=== PATIENT | female | born 1940 | race Caucasian/White ===

== ENCOUNTER 2016-04-18 18:39 | Inpatient (IN) | payer MEDICARE ==
[~2016-04-18] VITALS: Ht 162.6 cm; Wt 72.9 kg
[2016-04-18 18:51] VITALS: BP 157/51; PULSE 85; RESP 16; O2SAT 96
--- NOTE | 2016-04-18 19:07 | ED.REPORT ---
HPI-Chest Pain 40 and Over Date of Service Apr 18, 2016 ED Provider: Tanner Moulton DO Pt is a 75 y.o. female with a hx of DM who presents to the ED from her PCP after an abnormal EKG and complaining of palpitations. Pt states that she was at Dr. Clay's office for a follow-up about her DM, she mentioned during the visit that she had been experiencing palpitations. An EKG was ordered and pt appeared to be in A-fib, she has no prior hx, pt was instructed to follow-up in the ED. She reports associated fatigue onset 3 weeks ago. She denies fever, nausea, vomiting, diarrhea, and cough. She reports taking ASA daily. Nursing Notes Stated Complaint: ABNORMAL EKG Chief Complaint: Dysrhythmia/Cardiac Nursing Notes Reviewed: Yes Allergies: Coded Allergies: TAPE (Verified Allergy, Severe, blisters, 04/18/16) morphine (Verified Adverse Reaction, Severe, Nausea,Vomiting, 04/18/16) General Time Seen by MD: 19:07 Chief Complaint Other (Palpitations) Hx Obtained From: Patient Arrived By: Walk-in Sudden in Onset?: Yes Onset Occurred: Just prior to arrival Severity: Current: No pain currently Recent Healthcare: Recent doctor visit Past Medical History Past Medical History Reports: Diabetes mellitus Past Surgical History None reported Social History Other Social History: Good social support Ambulatory Status Independent Review of Systems Constitutional: Reports: Fatigue, Denies: Fever Respiratory: Denies: Non-productive cough Cardiovascular: Reports: Palpitations GI: Denies: Diarrhea, Nausea, Vomiting Complete sys rev & neg: except as marked. Physical Exam Initial Vital Signs Vital Signs (First) Date Time Temp Pulse Resp B/P Pulse Ox O2 Delivery O2 Flow Rate FiO2 04/18/16 18:51 36.6 85 16 157/51 96 Room Air Initial VS: Reviewed Head / Eyes: Atraumatic, Normocephalic Extremities: Vascular intact, Neuro intact Skin: Warm, Dry, No cyanosis Neurologic: Alert, Oriented, Nonfocal Psychiatric: Mood/affect normal, Behavior normal, Normal thought content General/Constitutional: Awake, Alert, No acute distress, Well appearing, Well developed, Well hydrated, Well nourished, Not toxic appearing Respiratory / Chest: Atraumatic, Breath sounds NL, No respiratory distress Cardiovascular: Peripheral circulation NL Irregular pulse PAC's Abdomen: Atraumatic, No distention Interpretation & Diagnostics Lab Results Interpretation Result Diagram: 04/18/16192204/18/16 1923 Test 04/18/16 19:23 04/18/16 20:51 White Blood Count 16.3th/mm3 (3.8-10.1) Red Blood Count 4.32mil/mm3 (3.90-5.20) Hemoglobin 13.5g/dL (12.0-15.6) Hematocrit 40.1% (35.0-46.0) Mean Corpuscular Volume 92.8fL (81-100) Mean Corpuscular Hemoglobin 31.3pg (27.0-35.0) Mean Corpuscular Hemoglobin Concent 33.7% (32.0-37.0) Red Cell Distribution Width 13.1% (12.3-15.4) Platelet Count 384bil/L (150-400) Neutrophils (%) (Auto) 54.6% (40-74) Lymphocytes (%) (Auto) 32.8% (14-46) Monocytes (%) (Auto) 9.1% (4-12) Eosinophils (%) (Auto) 2.9% (0-5) Basophils (%) (Auto) 0.4% (0-3) Sodium Level 138mEq/L (134-144) Potassium Level 4.2mEq/L (3.5-5.2) Chloride Level 99mEq/L (97-108) Carbon Dioxide Level 24mmol/L (18-29) Blood Urea Nitrogen 10mg/dL (8-27) Creatinine 0.72mg/dL (0.57-1.00) Estimat Glomerular Filtration Rate 114mL/min (>59) Glucose Level 185mg/dL (60-99) Calcium Level 9.2mg/dL (8.5-10.1) Magnesium Level 2.0mg/dL (1.6-2.6) Total Bilirubin 0.3mg/dL (0.0-1.2) Aspartate Amino Transf (AST/SGOT) 18U/L (0-50) Alanine Aminotransferase (ALT/SGPT) 13U/L (0-32) Alkaline Phosphatase 68U/L (25-165) Troponin T < 0.010ug/L (0.0-0.011) Total Protein 7.0g/dL (6.4-8.4) Albumin 4.2g/dL (3.4-5.0) Thyroid Stimulating Hormone (TSH) 1.030uIU/mL (0.450-4.500) Hold Sexton Top Tube Received (Received) Urine Color Yellow (YELLOW) Urine Appearance Slightly cloudy Urine pH 6.5 (5.0-8.0) Urine Specific Decker 1.010 (1.003-1.035) Urine Protein Negativemg/dL (NEG,TRACE) Urine Glucose (UA) Negativemg/dL (NEGATIVE) Urine Ketones Negativemg/dL (NEGATIVE) Urine Occult Blood Small (NEGATIVE) Urine Nitrite Negative (NEGATIVE) Urine Bilirubin Negative (NEGATIVE) Urine Urobilinogen Normalmg/dL (NORMAL) Urine Leukocyte Esterase Small (NEGATIVE) Urine RBC 0-2/hpf (0-2) Urine WBC 11-50/hpf (0-5) Urine Epithelial Cells Moderate/hpf (NONE-MOD) Urine Crystals None seen (NONE SEEN) Urine Bacteria Many/hpf (NONE-FEW) Urine Hyaline Casts None/lpf (NONE) Urine Granular Casts None seen (NONE SEEN) Urine Waxy Casts None seen (NONE SEEN) Urine Red Blood Cell Casts None seen (NONE SEEN) Urine White Blood Cell Casts None seen (NONE SEEN) Urine Mucus Present (None Seen) Urine Trichomonas None seen (NONE SEEN) Urine Yeast None (NONE SEEN) Urinalysis Comment None Urine Culture Reflexed Indicated ECG Interpretation ECG Interpretation: Underlying sinus rhythm, appears to be going in and out of a-fib/flutter. Time: 19:12 Normal ECG Interpretation: Normal rate (79) CBC Interpretation WBC elevated X-Ray Chest Interpretation Chest Xray Interpretation: IMPRESSION: Acute disease is not seen in the upright portable chest. No evidence for failure is seen. Probable right costochondral junction first rib calcification versus possible but less likely overlapping 1 cm lung nodule. Dictated by: Tyson Girard M.D. on 04/18/2016 at 20:00 Approved by: Tyson Girard M.D. on 04/18/2016 at 20:02 Re-Eval/Medical Decision Med Decision/Clinical Course Patient presents with new onset atrial fibrillation with rapid ventricular response. She clearly had A. fib on the monitor. Rate was 140. There was a sawtooth pattern consistent with flutter and the nature fibrillation. This broke with IV Cardizem. It looks like she has a urinary tract infection as well. She is treated with IV Cardizem and IV ceftriaxone. I think she is probably going to need anticoagulation. She will be admitted to the hospitalist service to a PCU bed for further care and disposition. Source of Hx: Old records Time of Eval: 19:19 Re-Evaluation/Progress Note: Discussed EKG and needs for labs and imaging. Pt understands and agrees with plan. Time of Eval: 19:38 Re-Evaluation/Progress Note: Rhythm strip shows A-fib with rate of 140. Consultation : Referral / Consult Name: Vivek Pickett MD Consulted With: Hospitalist Call Returned at: 21:40 Stone Carriage Operator: Accepts admit Note: Discussed pt condition, accepts admit. Counseled Regarding: Diagnosis, Lab results, Need for follow-up, When/why to return to ED Discharge & Departure Primary Impression: Atrial fibrillation with rapid ventricular response Additional Impression: UTI (urinary tract infection) Urinary tract infection type: acute cystitis Hematuria presence: without hematuria Qualified Code: N30.00 - Acute cystitis without hematuria Disposition: ADMITTED TO HOSPITAL Discharge Condition All VS Reviewed: Yes Condition: Stable Scribe Attestation Portions of this note were transcribed by Petra Lujan. I, Dr. Moulton personally performed the history, physical exam and medical decision-making; I reviewed and confirmed the accuracy of the information in the transcribed note. Signed by : Yung Portillo, 04/18/16 and [id number]. copies to: Kelsi Clay MD, Todd P DO Apr 18, 2016 19:07 PETRA LUJAN Apr 18, 2016 19:24
[2016-04-18 19:34] LABS: BASOPHILS % (AUTO) 0.4 % (0-3); EOSINOPHILS % (AUTO) 2.9 % (0-5); MONOCYTES % (AUTO) 9.1 % (4-12); Mean Corpuscular Hemoglobin 31.3 pg (27.0-35.0); Mean Corpuscular Volume 92.8 fL (81-100); NEUTROPHILS % (AUTO) 54.6 % (40-74); Platelet Count 384 bil/L (150-400)
[2016-04-18] MEDS ORDERED: Diltiazem 5 mg/mL 5 mL Inj IVPUSH PRN (19:40)
--- NOTE | 2016-04-18 20:04 | DRSVH ---
PROCEDURE: X-RAY CHEST ONE VIEW, PORTABLE ([id number]) INDICATIONS: rapid heart rate, shortness of breath TECHNIQUE: One view of the chest was acquired. COMPARISON: None. FINDINGS: Surgical changes and devices: A licensed final expense agents leads are seen over the chest. Vascular clips are see n in the region of the right hemidiaphragm or chest or liver. Bilateral upper abdomen vascular clips are present. Lungs and pleura: No pleural effusions or pneumothorax. There is mild irregular density overlying th e inferolateral aspect of the right first costal chondral junction. This may well be dystrophic calci fication at an adjacent lung mass cannot be excluded. A lordotic film are 2 view chest x-ray would be useful to rule out a lesion. Pulmonary vasculature is normal. Mediastinum: Mediastinal contours appear normal. There is elevation of the right hemidiaphragm. Hea rt size is normal. Bones and chest wall: No suspicious bony lesions old posterior right sixth and seventh rib fractures are noted.. Overlying soft tissues appear unremarkable. IMPRESSION: Acute disease is not seen in the upright portable chest. No evidence for failure is seen. Probable right costochondral junction first rib calcification versus possible but less likely overlap ping 1 cm lung nodule. Dictated by: Tyson Girard M.D. on 04/18/2016 at 20:00 Approved by: Tyson Girard M.D. on 04/18/2016 at 20:02
[2016-04-18 20:18] LABS: TROPONIN T < 0.010 ug/L (0.0-0.011)
[2016-04-18 21:05] LABS: APPEARANCE,URINE SLIGHTLY CLOUDY (CLEAR,HAZY); COLOR,URINE YELLOW (YELLOW); OCCULT BLOOD,URINE SMALL (NEGATIVE); PH,URINE 6.5 (5.0-8.0); UROBILINOGEN,URINE NORMAL (NORMAL)
[2016-04-18] MEDS ORDERED: cefTRIAXone Inj 2 GM in IV Premix 1 EACH IV ONE (21:10)
[2016-04-18 21:56] VITALS: BP 130/65; PULSE 76; RESP 16; O2SAT 94
[2016-04-18] MEDS ORDERED: Alum-Mag Hydrox-Simeth 30 mL Suspension PO PRN (22:30)
[2016-04-18] MEDS ORDERED: Ondansetron 2 mg/mL 2 mL Inj IVPUSH PRN (22:30)
[2016-04-18] MEDS ORDERED: Polyethylene Glycol (PEG) 17 Gm Powder PO PRN (22:30)
[2016-04-19 01:05] VITALS: BP 133/55; PULSE 130; RESP 26; O2SAT 93
--- NOTE | 2016-04-19 01:05 | NUR ---
Pt Admission to [facility] Pt arrived to Room 2019 on a gurney with her daughter at her side. Pt was able to get off of the gurney and walk with a steady gait independently in the room with no c/o dizziness or SOB. Pt arrived on RA with SpO2 88-92% and in A-Fib 90s-130s.
[2016-04-19] MEDS ORDERED: Albuterol 2.5 mg/3 mL Inhalation Solution NEB PRN (01:25)
[2016-04-19] MEDS ORDERED: Insulin LISPRO 300 Unit/3 mL Inj SUBQ ONE (01:40)
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
[2016-04-19 03:49] VITALS: BP 155/72; PULSE 78; RESP 21; O2SAT 92
[2016-04-19 03:56] LABS: BASOPHILS % (AUTO) 0.4 % (0-3); EOSINOPHILS % (AUTO) 4.2 % (0-5); Mean Corpuscular Hemoglobin 31.5 pg (27.0-35.0); Mean Corpuscular Volume 92.7 fL (81-100); NEUTROPHILS % (AUTO) 45.6 % (40-74); Platelet Count 380 bil/L (150-400)
[2016-04-19 04:58] VITALS: PULSE 79
--- NOTE | 2016-04-19 06:18 | NUR ---
Cardiac Rhythm Pt's cardiac rhythm upon arrival was A-Fib 90s-130s. Pt's cardiac rhythm for the last few hours has been A-Fib 70s-90s with PVCs. Pt has family at the bedside and pt is calm with no s/s of anxiety or discomfort at this time.
[2016-04-19 08:00] VITALS: PULSE 75
[2016-04-19 08:30] VITALS: BP 115/59; PULSE 79; RESP 16; O2SAT 93
[2016-04-19] MEDS ORDERED: Tiotropium 18mcg/Cap 5 Capsule Inhaler Kit INHALATION SCH (08:30)
[2016-04-19] MEDS ORDERED: Lisinopril 40 Tablet PO SCH (08:30)
[2016-04-19] MEDS ORDERED: HYDR-4003 PO (08:55)
[2016-04-19] MEDS ORDERED: CITA40TA13 PO (08:55)
[2016-04-19] MEDS ORDERED: METF500T4 PO (08:55)
[2016-04-19] MEDS ORDERED: SIMV40TA5 PO (08:55)
[2016-04-19] MEDS ORDERED: MONT10TA23 PO (08:55)
[2016-04-19] MEDS ORDERED: ASCO100089 PO (08:55)
[2016-04-19] MEDS ORDERED: TIOT18CA3 INHALATION (08:55)
[2016-04-19] MEDS ORDERED: ALBU6.7H INHALATION (08:55)
[2016-04-19] MEDS ORDERED: OMEP20CA11 PO (08:55)
[2016-04-19] MEDS ORDERED: FLUT12AE6 INHALATION (08:55)
[2016-04-19] MEDS ORDERED: GABA-502 PO (08:55)
[2016-04-19] MEDS ORDERED: LISI40TA PO (08:55)
[2016-04-19] MEDS ORDERED: MELO-259 PO (08:55)
--- NOTE | 2016-04-19 11:22 | NUR ---
Social Work: Initial Assessment D: Per EMR review, pt is a 75 year old female admitted for new onset AFIB with RVR. Pt is [employer]. PCP is Kelsi Clay MD. NOK is Camila Odell, dtr, . Advanced directives not completed- information provided to pt. Readmit score not entered at this time. CURED MEATS SUPERVISOR met with pt at bedside. Sw role explained. See initial assessment. Pt lives at home in [facility]. Pt continues to drive and uses no DME. She has never had HH or skilled rehab. Pt has no concerns about discharge home and states that her daughter will drive her home when ready. Pt has been I during admission. A: Pt who is I at baseline. P: Anticipate pt to discharge home via POV; no sw needs identified at this time. CURED MEATS SUPERVISOR to continue to follow as pt's clinical course progresses. FAISAL Helms Addendum: 04/19/16 at 1126 by MANDY YANG Amended: Links added.
[2016-04-19 12:15] VITALS: BP 141/70; PULSE 83; RESP 19; O2SAT 94
--- NOTE | 2016-04-19 14:53 | PCM.DIMED ---
Discharge Instructions Date of Service Apr 19, 2016 Dates of Hospitalization Apr 18, 2016 at 23:43 Discharge Diagnosis Discharge Diagnosis Atrial fibrillation with rapid ventricular response Diet Heart Healthy, Diabetic Activity No restrictions Call your provider Shortness of breath, Chest pain Patient Instructions He needed a referral to get an echocardiogram as well as to the warfarin clinic. You should have an INR drawn Saturday 04/22 and be directed whether to continue or change her current warfarin/Coumadin dose. Follow-up Provider: Kelsi Clay MD Follow-up with PCP in: Other (hopefully early next week but certainly within 7 days) Attending's Statement He had atrial fibrillation with rapid ventricular response, your blood pressure was high I am adding the blood pressure medicine metoprolol. He should keep a log and check your blood pressure once or twice a day and log your heart rate as well. He should probably decrease the dose appear feeling faint or if her heart rate is less than 50. Metoprolol will keep her heart rate under control and also help her heart from going into atrial fibrillation. Please bring this log with you when you follow up with your primary care provider. If your primary care provider does not feel comfortable managing her warfarin ask for a referral to the warfarin clinic and/or to a supervisor post wave. Jeffry Juarez MD Apr 19, 2016 14:53
[2016-04-19] MEDS ORDERED: METO25TA6 PO (15:04)
[2016-04-19] MEDS ORDERED: WARF5TAB7 PO (15:04)
[2016-04-19] MEDS ORDERED: CEPH-512 PO (16:55)
[2016-04-19] MEDS ORDERED: DOXY100V IV (17:01)
--- NOTE | 2016-04-19 17:07 | PCM.DC.MED ---
Discharge Summary Date of Service Apr 19, 2016 Dates of Hospitalization Date of Hospital Admission Apr 18, 2016 at 23:43 Date of Discharge: Apr 19, 2016 Providers: Admitting Physician: Vivek Pickett MD Primary Care Physician: Kelsi Clay MD Attending Physician: Vivek Pickett MD Diagnosis at Time of Discharge Diagnosis at Time of Discharge Atrial fibrillation with rapid ventricular response Consultations None Procedures XRay, CTs & MRIs Chest x-ray: IMPRESSION: Acute disease is not seen in the upright portable chest. No evidence for failure is seen. Probable right costochondral junction first rib calcification versus possible but less likely overlapping 1 cm lung nodule. Dictated by: Tyson Girard M.D. on 04/18/2016 at 20:00 ECG 12 Lead Rate 79 QTc 443 Sinus rhythm with PAC's Cardiac Echo Impression Needs to obtain when outpatient Brief History Patient is a 75 year old female presents to ED with generalized weakness and palpitations. She got cardioverted in the emergency room and admitted. Hospital Course Patient is a 75 year old female with a history of DM2, HTN, HLP, COPD, and TIA. She presented to [facility] on 04/18/16 with generalized weakness and palpitations. She had an abnormal EKG from PCP showing atrial fibrillation; never before diagnosed. Also found to have UTI. Patient admitted for further management of both. 1. Urinary tract infection, acute, present on admission.-Ruled out UA is dirty catch with 10-50 WBCs, many epithelial cells and the patient is asymptomatic no further treatment. Even if it were a UTI, 1 dose daily or 70% of them. 2. Atrial fibrillation with RVR, acute, present on admission. Patient cardioverted ER,m nterestingly no echocardiogram or follow-up cardiac enzymes or EKG were ordered. Often these people can be sent home directly from the hospital therefore this workup is not essential especially given the benign- looking EKG but as long as she was here I would prefer to have done and unfortunately at this late hour patient is anxious to go home and I am not going to hold her to do the rest of the workup. I gave her the option of how she wanted to handle anticoagulation whether to start warfarin, a novel anticoagulant or discuss it with primary care provider Guru score is uncertain as we do not have an echocardiogram, she does have hypertension, her age is less than 75, she does have diabetes, no history of stroke therefore her scores a 2 as we know now which does qualify for anticoagulation. She opted to start her warfarin were giving her prescription 5 mg daily and I am adding metoprolol for blood pressure and rate control 25 mg twice a day. 3. Leukocytosis, acute, present on admission. - Secondary to UTI. Will treat with antibiotics as above in #1. - Continue to monitor CBC. 4. Diabetes mellitus type 2, presume controlled. - Patient reports "good A1c" just measured with PCP. Cannot recall number. - Continue metformin 500 mg QPM. - AccuCheck BID per home regimen. - Continue gabapentin 300 mg HS for presumed neuropathic discomfort. 5. COPD, presume stable. - Continue Spiriva 1 capsule daily. - Albuterol nebs available Q2 PRN. - Patient also takes Advair 230/21 HFA 1 puff BID. Do not have on formulary. Patient may bring her own inhaler and have it verified with pharmacy for administration. 6. Hypertension, chronic, presume stable. - Continue lisinopril 40 mg daily. 7. Hyperlipidemia, chronic, presume stable. - Continue statin - will change to atorvastatin 10 mg HS during admission. 8. Carotid artery disease s/p stent placement, chronic, presume stable. - Continue daily baby aspirin and statin. 9. Depression, chronic, presume stable. - Continue citalopram 40 mg daily. - Antiemetic available PRN. - Antacid available PRN. - Bowel regimen available PRN. - Tylenol available PRN mild headache/pain, fever. Patient admitted under inpatient status with expected length of stay greater than 2 midnights for severity of present symptoms, complexities of treatment plan and risk for adverse events. PCP Kelsi Clay MD Exam Vital Signs (Last) Date Time Temp Pulse Resp B/P Pulse Ox O2 Delivery O2 Flow Rate FiO2 04/19/16 12:15 36.9 83 19 141/70 94 Nasal Cannula 1.00 Exam Gen.- A+ O 3 no apparent distress. Sitting up in chair Eyes- open conjunctiva clear, pupils equal nonicteric Mouth- oral mucosa moist, no exudate ENT- ears normal, nose normal Neck- supple/trach midline CVS-regular rate and rhythm by telemetry, no pedal edema Lungs normal rate no accessory muscle usage GI-abdomen flat Musc- moving 4 no obvious deformity Neuro- cranial nerves II through XII intact to gross examination, nonfocal Skin- warm and dry, no rashes/lesions/wounds noted Psych- pleasant and appropriate, Test 04/18/16 19:23 04/18/16 20:51 04/19/16 03:40 Magnesium Level 2.0mg/dL (1.6-2.6) Total Bilirubin 0.3mg/dL (0.0-1.2) Aspartate Amino Transf (AST/SGOT) 18U/L (0-50) Alanine Aminotransferase (ALT/SGPT) 13U/L (0-32) Alkaline Phosphatase 68U/L (25-165) Troponin T < 0.010ug/L (0.0-0.011) Total Protein 7.0g/dL (6.4-8.4) Albumin 4.2g/dL (3.4-5.0) Thyroid Stimulating Hormone (TSH) 1.030uIU/mL (0.450-4.500) Hold Sexton Top Tube Received (Received) Urine Color Yellow (YELLOW) Urine Appearance Slightly cloudy Urine pH 6.5 (5.0-8.0) Urine Specific [place]itten 1.010 (1.003-1.035) Urine Protein Negativemg/dL (NEG,TRACE) Urine Glucose (UA) Negativemg/dL (NEGATIVE) Urine Ketones Negativemg/dL (NEGATIVE) Urine Occult Blood Small (NEGATIVE) Urine Nitrite Negative (NEGATIVE) Urine Bilirubin Negative (NEGATIVE) Urine Urobilinogen Normalmg/dL (NORMAL) Urine Leukocyte Esterase Small (NEGATIVE) Urine RBC 0-2/hpf (0-2) Urine WBC 11-50/hpf (0-5) Urine Epithelial Cells Moderate/hpf (NONE-MOD) Urine Crystals None seen (NONE SEEN) Urine Bacteria Many/hpf (NONE-FEW) Urine Hyaline Casts None/lpf (NONE) Urine Granular Casts None seen (NONE SEEN) Urine Waxy Casts None seen (NONE SEEN) Urine Red Blood Cell Casts None seen (NONE SEEN) Urine White Blood Cell Casts None seen (NONE SEEN) Urine Mucus Present (None Seen) Urine Trichomonas None seen (NONE SEEN) Urine Yeast None (NONE SEEN) Urinalysis Comment None Urine Culture Reflexed Indicated White Blood Count 16.4th/mm3 (3.8-10.1) Red Blood Count 4.54mil/mm3 (3.90-5.20) Hemoglobin 14.3g/dL (12.0-15.6) Hematocrit 42.1% (35.0-46.0) Mean Corpuscular Volume 92.7fL (81-100) Mean Corpuscular Hemoglobin 31.5pg (27.0-35.0) Mean Corpuscular Hemoglobin Concent 34.0% (32.0-37.0) Red Cell Distribution Width 13.3% (12.3-15.4) Platelet Count 380bil/L (150-400) Neutrophils (%) (Auto) 45.6% (40-74) Lymphocytes (%) (Auto) 36.6% (14-46) Monocytes (%) (Auto) 13.0% (4-12) Eosinophils (%) (Auto) 4.2% (0-5) Basophils (%) (Auto) 0.4% (0-3) Sodium Level 141mEq/L (134-144) Potassium Level 4.2mEq/L (3.5-5.2) Chloride Level 101mEq/L (97-108) Carbon Dioxide Level 25mmol/L (18-29) Blood Urea Nitrogen 10mg/dL (8-27) Creatinine 0.67mg/dL (0.57-1.00) Estimat Glomerular Filtration Rate 124mL/min (>59) Glucose Level 153mg/dL (60-99) Calcium Level 9.7mg/dL (8.5-10.1) Microbiology Results Micro pending on urine Discharge Medications Discharge Medications Albuterol Sulfate (Proventil HFA Inhaler) 6.7 Gm Hfa.aer.ad 1-2 PUFFS INHALATION BID (Reported) Ascorbic Acid (Vitamin C) 1,000 Mg Tab.chew 1,000 MG PO DAILY (Reported) Citalopram (Citalopram) 40 Mg Tablet 40 MG PO DAILY (Reported) Doxycycline Hyclate (Doxy 100) 100 Mg Vial 100 MG IV BID Prescribed by: JOSÉ CLEMENT MD Fluticasone/Salmeterol (Advair Hfa 230-21 Mcg Inhaler) 12 Gm Hfa.aer.ad 1 PUFFS INHALATION DAILY (Reported) Gabapentin (Gabapentin) 300 Mg Capsule 300 MG PO HS (Reported) Lisinopril (Lisinopril) 40 Mg Tablet 40 MG PO DAILY (Reported) Meloxicam (Meloxicam) 7.5 Mg Tablet 7.5 MG PO DAILY (Reported) Metformin (Metformin) 500 Mg Tablet 500 MG PO DAILY (Reported) Metoprolol Tartrate (Metoprolol Tartrate) 25 Mg Tablet 25 MG PO BID Prescribed by: JOSÉ CLEMENT MD Montelukast (Montelukast) 10 Mg Tablet 10 MG PO DAILY (Reported) Omeprazole (Omeprazole) 20 Mg Capsule.dr 1 CAPSULE PO BIDAC (Reported) Simvastatin (Simvastatin) 40 Mg Tablet 40 MG PO HS (Reported) Tiotropium [place] (Spiriva) 18 Mcg Cap.w.dev 18 MCG INHALATION DAILY (Reported ) Warfarin Sodium (Warfarin Sodium) 5 Mg Tablet 5 MG PO DAILY Prescribed by: JOSÉ CLEMENT MD As needed Hydrocodone-Acetaminophen 5-325 mg (Hydrocodone-Acetaminophen 5-325 mg) 1 Each Tablet 1 TAB PO BID PRN PRN For Pain (Reported) Disch Med Contraindications Anticoagulation Meds: Warfarin theapy initiated Followup Plan Disposition: Patient stable to discharge home without home health Follow-up plan See primary care provider within the next week and get echocardiogram and either have primarily an office check warfarin levels and property claims manager referral to warfarin clinic Discharge Diet: Heart Healthy, Diabetic Discharge Activity: No restrictions Patient Instructions He needed a referral to get an echocardiogram as well as to the warfarin clinic. You should have an INR drawn Saturday 04/22 and be directed whether to continue or change her current warfarin/Coumadin dose. Follow-up Provider: Kelsi Clay MD Follow-up with PCP in: Other (hopefully early next week but certainly within 7 days) Time spent 31 minutes Attending Statement Patient got cardioverted in the emergency room and very little other testing was obtained. Her urine was clearly a dirty catch however leukocytosis is a bit concerning so doxycycline was prescribed to cover for potential UTI as well as COPD exacerbation. Patient had no pulmonary or urinary complaints. Follow- up CBC might be warranted next week perhaps 04/22 but by 2/3 to verify leukocytosis resolution. copies to: Kelsi Clay MD, Andris E MD Apr 19, 2016 17:07
[2016-04-19 17:15] LABS: INR 0.95 ratio
--- NOTE | 2016-04-19 17:37 | NUR ---
Discharge.. Pt has been in consistent sinus with rates of 70-80's. Has been up in room and hallways ambulating without sxs. Seen by MD and d/c instructions received. Pt had a baseline PT/INR draw prior to leaving and the results and "go ahead" to start coumadin as ordered was relayed to her by phone. Given prescriptions and d/c home via wheel chair with belongings and accompanied by daughter.
[2016-04-19] MEDS ORDERED: cefTRIAXone Inj 2 GM in IV Premix 1 EACH IV SCH (22:00)
== END 2016-04-19 17:25 | disposition home or self-care (01) | DRG 310 ==
LOC: SED 18:39 → PCC 23:43
PROVIDERS: ADMIT Hospitalist; ATTEND Hospitalist
PROC: 3E040RZ Introduction of Antiarrhythmic into Central Vein, Open Approach (ICD-10-PCS; principal; 2016-04-18)
DX: I48.91 Unspecified atrial fibrillation (principal); I48.92 Unspecified atrial flutter; E11.9 Type 2 diabetes mellitus without complications; I10 Essential (primary) hypertension; J44.9 Chronic obstructive pulmonary disease, unspecified; E78.5 Hyperlipidemia, unspecified; Z95.5 Presence of coronary angioplasty implant and graft; Z79.51 Long term (current) use of inhaled steroids; Z79.82 Long term (current) use of aspirin